=== PATIENT | male | born 1975 | race Caucasian/White ===

== ENCOUNTER 2023-07-23 23:00 | Inpatient (IN) | payer MEDICAID, SELFPAY ==
[2023-07-23 23:05] VITALS: BP 135/85; PULSE 74; RESP 18; TEMP 36.7; O2SAT 98
[2023-07-23 23:07] VITALS: BMI 21.7
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
[2023-07-24] MEDS: acetaminophen 325 mg Tablet 650 MG PO ×3 (00:22→20:42)
[2023-07-24] MEDS: LORazepam 2 mg Tablet PO ×6 (00:22→21:20)
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
[2023-07-24 04:54] LABS: Basophils # 0.1 10^3/uL (0.0-0.1); Basophils % 1.1 %; Eosinophils # 0.1 10^3/uL (0.0-0.8); Eosinophils % 1.9 %; Hematocrit 38.1 % (37-53); Lymphocytes # 1.8 10^3/uL (0.8-4.8); Lymphocytes % 31.2 %; Mean Corpuscular HGB Conc 33.1 g/dL (30-55); Mean Corpuscular Hemoglobin 31.8 pg (27-33); Mean Corpuscular Volume 96.2 fl (82-101); Monocytes # 0.5 10^3/uL (0.2-0.9); Monocytes % 9.4 %; Neutrophils # 3.13 10^3/uL (1.8-7.7); Neutrophils % 55.3 %; Nucleated Red Blood Cells % 0 %; Platelet Count 326 10^3/cmm (157-399); Red Blood Count 3.96 10^6/uL (3.85-5.65); Red Cell Distribution Width 14.5 % (12.1-15.1); White Blood Count 5.65 10^3/uL (3.29-11.43)
[2023-07-24 05:13] LABS: Anion Gap 14.5 (5-19); Blood Urea Nitrogen 14 mg/dL (6-20); Calcium 9.6 mg/dL (8.5-10.5); Carbon Dioxide 25 mmol/L (22-29); Chloride 105 mmol/L (98-107); Glomerular Filtration Rate 119.9 mL/min (90-130); Glucose 105 mg/dL (65-115); Osmolality Calculated 293 mOsm/kg (285-295); Potassium 3.5 mmol/L (3.5-5.1); Sodium 141 mmol/L (136-145)
[2023-07-24 05:42] LABS: Procalcitonin 0.17 ng/mL (0-0.5); Vitamin B12 510 pg/mL (232-1245)
[2023-07-24 05:58] LABS: Alcohol Level < 10 mg/dL (0-10)
[2023-07-24 06:00] VITALS: BP 121/74; PULSE 74; RESP 16; TEMP 36.4; O2SAT 97
[2023-07-24 06:25] LABS: C Reactive Protein 3.8 mg/L (0.0-4.9)
[2023-07-24] MEDS: potassium chloride ER 20 mEq Tablet 40 MEQ PO (08:08)
[2023-07-24] MEDS: thiamine 100 mg Tablet PO (08:08)
[2023-07-24] MEDS: multivitamin therapeutic Tablet 1 TAB PO (08:08)
[2023-07-24] MEDS: folic acid 1 mg Tablet PO (08:08)
[2023-07-24] MEDS: bacitracin ointment Pkt 1 EACH TOPICAL ×3 (08:08→20:38)
[2023-07-24] MEDS: doxycycline 100 mg Tablet PO ×2 (08:08→17:12)
[2023-07-24] MEDS: ondansetron 4 MG Tablet PO (08:09)
[2023-07-24] MEDS: silver sulfadiazine cream 1% 50 gm 1 APPLIC TOPICAL ×2 (08:37→17:13)
[2023-07-24] MEDS: hyDROXYzine 25 mg Capsule 50 MG PO (09:14)
[2023-07-24 14:00] VITALS: BP 106/68; PULSE 75; RESP 16; TEMP 36.6; O2SAT 95
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
[2023-07-24] MEDS: trazodone 50 mg Tablet PO (20:38)
[2023-07-24 20:43] VITALS: BP 104/65; PULSE 93; RESP 16; TEMP 37; O2SAT 65
[2023-07-24] MEDS: ibuprofen 600 mg Tablet PO (21:20)
[2023-07-25 06:00] VITALS: BP 98/60; PULSE 65; RESP 16; O2SAT 98
--- NOTE | 2023-07-25 06:19 | PC.NURSE ---
At 1945 pt scored a 14 on CIWA, this nurse gave pt 2mg Ativan PO per CIWA protocol. Reassessed pt at 2119 for CIWA and pt scored a 12. Pt was given 2mg Ativan PO per CIWA protocol Went to check on pt again at 2219 and pt was asleep. Respirations even and unlabored Pt then proceeded to score 0 on CIWA at 0000 and 0400. Vital at 0630 were HR 65, RR 16, BP 98/65, O2 98. Pt was told that his heart rate is a little low and that he needed to drink some water and walk around.
[2023-07-25] MEDS: LORazepam 2 mg Tablet PO ×2 (08:30→17:56)
[2023-07-25] MEDS: duloxetine 30 mg Capsule PO (08:30)
[2023-07-25] MEDS: doxycycline 100 mg Tablet PO ×2 (08:30→20:27)
[2023-07-25] MEDS: multivitamin therapeutic Tablet 1 TAB PO (08:30)
[2023-07-25] MEDS: folic acid 1 mg Tablet PO (08:36)
[2023-07-25] MEDS: thiamine 100 mg Tablet PO (08:36)
[2023-07-25] MEDS: silver sulfadiazine cream 1% 50 gm 1 APPLIC TOPICAL ×2 (08:36→20:28)
[2023-07-25] MEDS: bacitracin ointment Pkt 1 EACH TOPICAL ×3 (08:36→20:28)
[2023-07-25] MEDS: hyDROXYzine 25 mg Capsule 50 MG PO ×2 (11:37→20:27)
[2023-07-25] MEDS: OLANZapine 5 mg ODT PO ×2 (11:37→18:04)
[2023-07-25] MEDS: ibuprofen 600 mg Tablet PO ×3 (11:37→18:03)
[2023-07-25 14:00] VITALS: BP 109/77; PULSE 65; RESP 20; TEMP 36.5; O2SAT 97
--- NOTE | 2023-07-25 17:28 | W.PM.NPUPNS ---
Subjective NPU Subjective: 48-year-old male with a history of alcohol dependence and depression admitted with suicidal ideation. He has a past history of severe withdrawal symptoms. He remains on the CIWA protocol and reported feeling terrible. He had stated that he had a cyst under the parotid gland and was concerned that it was infected. He had reported feeling shaky. He had isolated himself in the room most of the day and was seen sleeping throughout much of the afternoon. He had minimal attendance in groups. He had reported no side effects from his medications. He had endorsed a sense of hopelessness. He had reported significant pain issues that had led to his substance abuse particularly alcohol dependence. Mental Status Exam MSE Comments: He is a casually dressed white male who appeared agitated today. He appeared in signficant distress. There was moderate tremor appreciated. His gait was not tested. His speech was normal in regards to rate rhythm and prosody. His mood was described as depressed. His affect was restricted in range and mood-congruent. His thought process was linear logical and goal-directed. His thought content showed no evidence of active homicidal ideation. He had reported no suicidal ideation but no active plan currently. He did not appear to be responding to internal stimuli. There was no clear evidence of delusional thinking. His insight was limited. His judgment was poor. His impulse control appeared limited at this time. Vitals/I&O/Wt Last Vital Signs Temp 97.7 F 07/25/23 14:00 Pulse 65 07/25/23 14:00 Resp 20 H 07/25/23 14:00 BP 109/77 07/25/23 14:00 Pulse Ox 97 07/25/23 14:00 O2 Del Method Room Air 07/25/23 14:00 Weight last 48 hrs Weight 74.843 kg Data NPU 07/24/23 03:38 07/24/23 03:38 A&P Assessment and plan (1) Suicidal ideation: (2) Alcohol abuse: (3) Alcohol dependence with acute alcoholic intoxication with complication: (4) Depression, unspecified: (5) Generalized anxiety disorder: Plan 48-year-old white male with a history of chronic pain issues depression and alcohol dependence admitted with suicidal ideation with considerable psychosocial stressors including financial stressors and homelessness. 1. Encourage individual, group and milieu therapy. 2. Recommend sober living treatment at the highest level of care to which the patient is willing to commit. 3. Continue q-15 minute checks for safety.? 4.? Restart current medications. 5.? CIWA protocol, patient has had severe withdrawal before, he continues to receive Ativan 2mg prn for acute withdrawal symptoms actively. 6. Medicine consult to evaluate left lymph node swelling. 7. Continue cymbalta 30mg daily Involuntary Hold Information 96 Hour Hold: 96 Hour Involuntary Admission: No Attestations NPU Medical Necessity Statement*: Inpatient hospitalization is medically necessary and deemed to?be?the clinically appropriate intervention ?at this time.? We will monitor/initiate medications and make changes as indicated.? The patient?s likely length of stay 4-6 days. Coding Level of Care Code Acute Code for [facility] Fwd Diagnoses Suicidal ideation R45.851 Alcohol abuse F10.10 Alcohol dependence with acute alcoholic intoxication with complication F10.229 Depression, unspecified F32.A Generalized anxiety disorder F41.1
[2023-07-25 18:59] LABS: Hematocrit 41.7 % (37-53); Mean Corpuscular HGB Conc 32.9 g/dL (30-55); Mean Corpuscular Hemoglobin 31.5 pg (27-33); Mean Corpuscular Volume 95.9 fl (82-101); Mean Platelet Volume 9.8 fL (7.4-10.4); Platelet Count 329 10^3/cmm (157-399); Red Blood Count 4.35 10^6/uL (3.85-5.65); Red Cell Distribution Width 14.4 % (12.1-15.1); White Blood Count 8.84 10^3/uL (3.29-11.43)
[2023-07-25 19:18] LABS: Absolute Eosinophils 0.3 10^3/cmm (0.0-0.7); Absolute Segmented Neutrophil 5.1 10/cmm (1.6-7.1); Band Neutrophils Absolute 0.2 10^3/cmm (0.0-1.2); Eosinophils 3 %; Lymphocytes 27 %; Lymphocytes Absolute 2.7 10^3/cmm (1.2-3.4); Monocytes Absolute 0.4 10^3/cmm (0.1-0.6); Segmented Neutrophils 58 %; Total Cells Counted 100 (0-100)
[2023-07-25 19:19] LABS: Absolute Neutrophil 5.3 10^3/cmm (1.4-6.5); Giant Platelets Trace; Platelet Estimate Normal (Normal)
[2023-07-25] MEDS: trazodone 50 mg Tablet PO (20:27)
--- NOTE | 2023-07-25 20:36 | PC.NURSE ---
pt ref vs resp 17
[2023-07-26 06:00] VITALS: BP 102/58; PULSE 76; RESP 15; TEMP 36.4; O2SAT 98
[2023-07-26] MEDS: duloxetine 30 mg Capsule PO (08:29)
[2023-07-26] MEDS: multivitamin therapeutic Tablet 1 TAB PO (08:29)
[2023-07-26] MEDS: doxycycline 100 mg Tablet PO ×2 (08:29→20:08)
[2023-07-26] MEDS: folic acid 1 mg Tablet PO (08:29)
[2023-07-26] MEDS: thiamine 100 mg Tablet PO (08:29)
[2023-07-26] MEDS: hyDROXYzine 25 mg Capsule 50 MG PO ×2 (08:31→20:08)
--- NOTE | 2023-07-26 08:32 | PC.NURSE ---
PRN VISTARIL 50 MG GIVEN PO PER PT C/O STATED ANXIETY
--- NOTE | 2023-07-26 08:33 | PC.NURSE ---
REFUSED SCHEDULED SILVADENE CREAM & BACITRACIN OINTMENT
--- NOTE | 2023-07-26 08:36 | PC.NURSE ---
SHIFT ASSESSMENT APPEARS CALM, JUST UP TO DAY ROOM FOR BREAKFAST, SPECIFICALLY ASKING FOR ATIVAN WITH MORNING MEDICATION, PRN VISTARIL GIVEN FOR C/O ANXIETY, STATED YEAH I'M SUICIDAL WHEN ASKED, BUT DENIES PLAN, CONTRACTS FOR SAFETY. C/O SOME HALLUCIANTIONS BUT DOES NOT APPEAR TO RESPOND TO ANY INTERNAL STIMULI CURRENTLY
[2023-07-26] MEDS: OLANZapine 5 mg ODT PO (12:01)
--- NOTE | 2023-07-26 13:04 | W.PM.NPUPNS ---
Subjective NPU Subjective: 48-year-old male with a history of alcohol dependence and depression admitted with suicidal ideation. Patient had reported feeling bad. He reported considerable shaking and reported that the visual and auditory hallucinations were becoming present again. He has a past history of severe withdrawal symptoms. He remained on a CIWA protocol here. Patient was given Ativan later in the afternoon yesterday with some improvement as he had fallen back asleep. He had reported sleep continuity disruption and discomfort. He had reported significant issues with managing pain as he stated that his back was hurting from a significant back injury suffered many years ago that did lead to the patient using alcohol to treat his chronic pain. Mental Status Exam MSE Comments: He is a casually dressed white male who again appeared agitated and in severe distress today. There was moderate tremor appreciated. His gait was not tested. His speech was normal in regards to rate rhythm and prosody. His mood was described as terrible. His affect was restricted in range and mood-congruent. His thought process was linear logical and goal-directed. His thought content showed no evidence of active homicidal ideation. He had reported no suicidal ideation but no active plan currently. He did not appear to be responding to internal stimuli although he reported seeing things. There was no clear evidence of delusional thinking. His insight was limited. His judgment was poor. His impulse control appeared limited at this time. Vitals/I&O/Wt Last Vital Signs Temp 97.5 F L 07/26/23 06:00 Pulse 76 07/26/23 06:00 Resp 15 07/26/23 06:00 BP 102/58 07/26/23 06:00 Pulse Ox 98 07/26/23 06:00 O2 Del Method Room Air 07/26/23 06:00 Data NPU 07/25/23 18:44 07/24/23 03:38 A&P Assessment and plan (1) Suicidal ideation: (2) Alcohol abuse: (3) Alcohol dependence with acute alcoholic intoxication with complication: (4) Depression, unspecified: (5) Generalized anxiety disorder: Plan 48-year-old white male with a history of chronic pain issues depression and alcohol dependence admitted with suicidal ideation with considerable psychosocial stressors including financial stressors and homelessness. 1. Encourage individual, group and milieu therapy. 2. Recommend sober living treatment at the highest level of care to which the patient is willing to commit. 3. Continue q-15 minute checks for safety.? 4.? Restart current medications. 5.? CIWA protocol, patient has had severe withdrawal before, he continues to receive Ativan 2mg prn for acute withdrawal symptoms actively. He was given ativan 2mg x1 now. Hallucinations appear unusual given time frame. that he was last having consumed etoh. 6. Medicine consult to evaluate left lymph node swelling. 7. Continue cymbalta 30mg daily Involuntary Hold Information 96 Hour Hold: 96 Hour Involuntary Admission: No Attestations NPU Medical Necessity Statement*: Inpatient hospitalization is medically necessary and deemed to?be?the clinically appropriate intervention ?at this time.? We will monitor/initiate medications and make changes as indicated.? The patient?s likely length of stay 4-6 days. Coding Level of Care Code Acute Code for [facility] Fwd Diagnoses Suicidal ideation R45.851 Alcohol abuse F10.10 Alcohol dependence with acute alcoholic intoxication with complication F10.229 Depression, unspecified F32.A Generalized anxiety disorder F41.1
[2023-07-26] MEDS: LORazepam 2 mg Tablet PO (13:46)
[2023-07-26] MEDS: acetaminophen 325 mg Tablet 650 MG PO (13:49)
[2023-07-26 14:00] VITALS: BP 100/61; PULSE 72; RESP 14; TEMP 36.2; O2SAT 96
[2023-07-26] MEDS: trazodone 50 mg Tablet PO (20:08)
[2023-07-26] MEDS: silver sulfadiazine cream 1% 50 gm 1 APPLIC TOPICAL (20:08)
[2023-07-26] MEDS: bacitracin ointment Pkt 1 EACH TOPICAL (20:08)
[2023-07-26] MEDS: nicotine 2 mg Gum BUCCAL (20:10)
[2023-07-26 20:24] VITALS: BP 119/53; PULSE 77; RESP 16; TEMP 36.6; O2SAT 96
[2023-07-27] MEDS: OLANZapine 5 mg ODT PO ×2 (00:23→08:29)
[2023-07-27] MEDS: thiamine 100 mg Tablet PO (08:26)
[2023-07-27] MEDS: multivitamin therapeutic Tablet 1 TAB PO (08:26)
[2023-07-27] MEDS: folic acid 1 mg Tablet PO (08:26)
[2023-07-27] MEDS: bacitracin ointment Pkt 1 EACH TOPICAL ×2 (08:26→14:43)
[2023-07-27] MEDS: doxycycline 100 mg Tablet PO ×2 (08:26→20:21)
[2023-07-27] MEDS: duloxetine 30 mg Capsule PO (08:26)
[2023-07-27] MEDS: silver sulfadiazine cream 1% 50 gm 1 APPLIC TOPICAL ×2 (08:27→20:21)
--- NOTE | 2023-07-27 08:53 | PC.NURSE ---
Pt stated that he was having Auditory Hallucinations this AM, administered a 5mg Zyprexa.
[2023-07-27] MEDS: haloperidol 5 mg Tablet PO (12:37)
[2023-07-27] MEDS: chlordiazePOXIDE 25 mg Capsule PO ×2 (12:37→18:25)
[2023-07-27 14:00] VITALS: BP 101/72; PULSE 67; RESP 14; TEMP 36.4; O2SAT 97
[2023-07-27] MEDS: acetaminophen 325 mg Tablet 650 MG PO (15:14)
--- NOTE | 2023-07-27 15:38 | W.PM.NPUPNS ---
Subjective NPU Subjective: 48-year-old male with a history of alcohol dependence and depression admitted with suicidal ideation. The patient had reported breakthrough pain in the absence of alcohol which she had used to treat his pain. He had reported that he was hearing sounds and was sensitive to noises. He had received Librium today and reported that he was feeling better afterwards. He is several days out of his last use of alcohol. He had reported continued depressed mood. He had reported some feelings of hopelessness. He continued to isolate himself in the room with limited ability to manage stress. He had also reported considerable pain. Mental Status Exam MSE Comments: He is a casually dressed white male who again appeared anxious and in severe distress today. He appeared tremulous. His gait appeared antalgic. His speech was normal in regards to rate rhythm and prosody. His mood was described as bad. His affect was restricted in range and mood-congruent. His thought process was linear logical and goal-directed. His thought content showed no evidence of active homicidal ideation. He had reported no suicidal ideation but no active plan currently. He did not appear to be responding to internal stimuli although he reported hearing things. There was no clear evidence of delusional thinking. His insight was limited. His judgment was poor. His impulse control appeared limited at this time. Vitals/I&O/Wt Last Vital Signs Temp 97.9 F 07/26/23 20:24 Pulse 77 07/26/23 20:24 Resp 16 07/26/23 20:24 BP 119/53 07/26/23 20:24 Pulse Ox 96 07/26/23 20:24 O2 Del Method Room Air 07/26/23 06:00 Data NPU 07/25/23 18:44 07/24/23 03:38 A&P Assessment and plan (1) Suicidal ideation: (2) Alcohol abuse: (3) Alcohol dependence with acute alcoholic intoxication with complication: (4) Depression, unspecified: (5) Generalized anxiety disorder: Plan 48-year-old white male with a history of chronic pain issues depression and alcohol dependence admitted with suicidal ideation with considerable psychosocial stressors including financial stressors and homelessness. 1. Encourage individual, group and milieu therapy. 2. Recommend sober living treatment at the highest level of care to which the patient is willing to commit. 3. Continue q-15 minute checks for safety.? 4.? Restart current medications. 5.? [facility] protocol, patient has had severe withdrawal before, switched to Librium 25mg Hallucinations appear unusual given time frame. that he was last having consumed etoh. 6. Medicine consult to evaluate left lymph node swelling and if any pain medication would be helpful. 7. Continue cymbalta 30mg daily Involuntary Hold Information 96 Hour Hold: 96 Hour Involuntary Admission: No Attestations NPU Medical Necessity Statement*: Inpatient hospitalization is medically necessary and deemed to?be?the clinically appropriate intervention ?at this time.? We will monitor/initiate medications and make changes as indicated.? The patient?s likely length of stay 2-3 days. Coding Level of Care Code Acute Code for [facility] Fwd Diagnoses Suicidal ideation R45.851 Alcohol abuse F10.10 Alcohol dependence with acute alcoholic intoxication with complication F10.229 Depression, unspecified F32.A Generalized anxiety disorder F41.1
[2023-07-27] MEDS: ibuprofen 600 mg Tablet PO (16:25)
[2023-07-27 19:03] LABS: Rapid Strep A Test Negative (Negative)
[2023-07-27 20:01] VITALS: BP 110/65; PULSE 74; RESP 16; TEMP 36.4; O2SAT 97
[2023-07-27] MEDS: trazodone 50 mg Tablet PO (20:21)
[2023-07-27] MEDS: amoxicillin-clav 875-125 mg Tablet 1 TAB PO (20:21)
[2023-07-27] MEDS: hyDROXYzine 25 mg Capsule 50 MG PO (20:21)
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
[2023-07-28 06:00] VITALS: BP 98/63; PULSE 59; RESP 16; TEMP 36.4; O2SAT 96
--- NOTE | 2023-07-28 06:00 | USR_ITS ---
PROCEDURE INFORMATION: Exam: US Soft Tissue Head and Neck, Soft Tissue Exam date and time: 07/28/2023 8:50 AM Age: 48 years old Clinical indication: Mass, lump, or swelling in neck; Left; Additional info: Tender swollen L submandibular ln vs salivary gland TECHNIQUE: Imaging protocol: Real-time ultrasound scan of the head and neck with image documentation. Exam focused on the soft tissue in the region of clinical concern. COMPARISON: No relevant prior studies available. FINDINGS: Salivary glands: Imaged left submandibular gland is unremarkable. Lymph nodes: At the area of concern just superior to the left submandibular gland is an enlarged 2.0 x 1.4 x 1.6 cm lymph node with preserved echogenic fatty hilum and associated hilar flow. No hyperemia. Few nearby smaller morphologically normal lymph nodes are noted. Soft tissues: Unremarkable. No fluid collections. US/US soft tissue head neck 22010 IMPRESSION: Enlarged lymph node at the left neck area of concern just above the submandibular gland is nonspecific, possibly reactive.
[2023-07-28] MEDS: OLANZapine 5 mg ODT PO ×2 (06:31→19:44)
[2023-07-28] MEDS: amoxicillin-clav 875-125 mg Tablet 1 TAB PO ×2 (08:29→19:44)
[2023-07-28] MEDS: duloxetine 30 mg Capsule 60 MG PO (08:29)
[2023-07-28] MEDS: nicotine 2 mg Gum BUCCAL (08:29)
[2023-07-28] MEDS: folic acid 1 mg Tablet PO (08:30)
[2023-07-28] MEDS: doxycycline 100 mg Tablet PO ×2 (08:30→19:43)
[2023-07-28] MEDS: multivitamin therapeutic Tablet 1 TAB PO (08:30)
[2023-07-28] MEDS: thiamine 100 mg Tablet PO (08:30)
[2023-07-28] MEDS: silver sulfadiazine cream 1% 50 gm 1 APPLIC TOPICAL ×2 (08:30→19:48)
[2023-07-28] MEDS: bacitracin ointment Pkt 1 EACH TOPICAL ×2 (08:30→19:44)
[2023-07-28] MEDS: chlordiazePOXIDE 25 mg Capsule PO ×2 (08:30→15:08)
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
[2023-07-28 14:00] VITALS: BP 107/64; PULSE 73; RESP 16; TEMP 36.8; O2SAT 98
[2023-07-28] MEDS: haloperidol 5 mg Tablet PO (15:10)
[2023-07-28] MEDS: hyDROXYzine 25 mg Capsule 50 MG PO ×2 (16:01→22:11)
[2023-07-28] MEDS: trazodone 50 mg Tablet PO (19:47)
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
--- NOTE | 2023-07-28 21:37 | CTR_ITS ---
PROCEDURE INFORMATION: Exam: CT Neck With Contrast Exam date and time: 07/29/2023 12:25 AM Age: 48 years old Clinical indication: Other: Left mandible pain; Patient HX: Left mandibular pain. Enlarged lymph node superior to submandibular gland noted on US. ; Additional info: Assess for any dental abscess, swollen, tender L submandibilar ln TECHNIQUE: Imaging protocol: Computed tomography of the neck with contrast. Radiation optimization: All CT scans at this facility use at least one of these dose optimization techniques: automated exposure control; mA and/or kV adjustment per patient size (includes targeted exams where dose is matched to clinical indication); or iterative reconstruction. Contrast material: OMNI 350; Contrast volume: 100 ml; Contrast route: INTRAVENOUS (IV); REPORTING DATA: Count of CT and Cardiac NM exams in prior 12 months: This patient has received 0 known CTs and 0 known cardiac nuclear medicine studies in the 12 months prior to the current study. COMPARISON: US soft tissue head neck [id number] 07/28/2023 8:50 AM RADIATION DOSE METRICS: Total DLP (mGy-cm): 195.92 FINDINGS: Dental: Periodontal disease. Pharynx: Unremarkable. No significant tonsillar enlargement. Larynx: Unremarkable. Epiglottis is normal. Prevertebral and retropharyngeal spaces: Unremarkable. Salivary glands: Normal. Glands are normal in size. Thyroid: Normal. No enlarged or calcified nodules. Lymph nodes: Enlarged left submandibular lymph node measuring up to 13 mm in short axis with multiple adjacent nodes measuring up to 7 mm in short axis. Trachea: Visualized trachea is unremarkable. Lungs: Moderate emphysematous changes in the lung apices. Bones/joints: Unremarkable. No acute fracture. Soft tissues: Unremarkable. No significant soft tissue swelling. CT/CT neck w con* [id number] IMPRESSION: 1. Enlarged left submandibular lymph node measuring up to 13 mm in short axis with multiple adjacent nodes measuring up to 7 mm in short axis. 2. Periodontal disease.
[2023-07-28 22:00] VITALS: BP 103/58; PULSE 88; RESP 16; TEMP 36.7; O2SAT 93
--- NOTE | 2023-07-29 00:16 | PC.NURSE ---
[employer] HERE TO TRANSPORT PATIENT TO CAT-SCAN FOR CAT-SCAN OF NECK WITH CONTRAST.
[2023-07-29] MEDS: iohexol 350 mg/mL 500 mL Btl (per mL) IV (00:31)
[2023-07-29 06:00] VITALS: BP 94/59; PULSE 58; RESP 16; TEMP 36.4; O2SAT 96
[2023-07-29] MEDS: folic acid 1 mg Tablet PO (08:44)
[2023-07-29] MEDS: duloxetine 30 mg Capsule 60 MG PO (08:44)
[2023-07-29] MEDS: nicotine 2 mg Gum BUCCAL (08:44)
[2023-07-29] MEDS: multivitamin therapeutic Tablet 1 TAB PO (08:44)
[2023-07-29] MEDS: thiamine 100 mg Tablet PO (08:44)
[2023-07-29] MEDS: chlordiazePOXIDE 25 mg Capsule PO ×2 (08:44→15:02)
[2023-07-29] MEDS: amoxicillin-clav 875-125 mg Tablet 1 TAB PO ×2 (08:44→19:34)
[2023-07-29 09:06] LABS: Basophils # 0.1 10^3/uL (0.0-0.1); Basophils % 1.6 %; Eosinophils # 0.2 10^3/uL (0.0-0.8); Eosinophils % 3.5 %; Hematocrit 46.4 % (37-53); Lymphocytes # 2.5 10^3/uL (0.8-4.8); Lymphocytes % 39.4 %; Mean Corpuscular HGB Conc 31.9 g/dL (30-55); Mean Corpuscular Hemoglobin 31.9 pg (27-33); Mean Platelet Volume 9.8 fL (7.4-10.4); Monocytes # 0.7 10^3/uL (0.2-0.9); Monocytes % 10.2 %; Neutrophils # 2.74 10^3/uL (1.8-7.7); Neutrophils % 43.1 %; Nucleated Red Blood Cells % 0 %; Platelet Count 354 10^3/cmm (157-399); Red Blood Count 4.64 10^6/uL (3.85-5.65); Red Cell Distribution Width 14.2 % (12.1-15.1); White Blood Count 6.35 10^3/uL (3.29-11.43)
[2023-07-29 09:26] LABS: Alanine Aminotransferase 231 U/L (0-41); Albumin Level 4.5 g/dL (3.5-5.2); Alkaline Phosphatase 113 U/L (40-130); Aspartate Amino Transferase 244 U/L (0-40); Blood Urea Nitrogen 17 mg/dL (6-20); Carbon Dioxide 27 mmol/L (22-29); Chloride 104 mmol/L (98-107); Globulin 2.5 g/dL (1.3-4.6); Glomerular Filtration Rate 79.4 mL/min (90-130); Glucose 90 mg/dL (65-115); Osmolality Calculated 293 mOsm/kg (285-295); Sodium 141 mmol/L (136-145); Total Bilirubin 0.4 mg/dL (0.15-1.2)
[2023-07-29] MEDS: doxycycline 100 mg Tablet PO ×2 (10:13→19:33)
[2023-07-29] MEDS: bacitracin ointment Pkt 1 EACH TOPICAL ×2 (10:13→19:34)
[2023-07-29] MEDS: silver sulfadiazine cream 1% 50 gm 1 APPLIC TOPICAL ×2 (10:13→19:37)
[2023-07-29] MEDS: hyDROXYzine 25 mg Capsule 50 MG PO (12:22)
[2023-07-29 14:00] VITALS: BP 102/69; PULSE 68; RESP 15; TEMP 36.4; O2SAT 96
[2023-07-29] MEDS: phenol oral Spray 177 mL 3 SPRAY MUCOUS MEM (15:03)
[2023-07-29] MEDS: OLANZapine 5 mg ODT PO ×2 (15:04→19:34)
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
[2023-07-29] MEDS: trazodone 50 mg Tablet PO (19:36)
[2023-07-29] MEDS: haloperidol 5 mg Tablet PO (19:36)
[2023-07-29 20:01] VITALS: BP 104/74; PULSE 76; RESP 18; O2SAT 98
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
[2023-07-29 22:20] LABS: Hepatitis A Antibody IgM Non-Reactive (Nonreactive); Hepatitis B Core IgM Non-Reactive (Nonreactive); Hepatitis B Surface Antigen Non-Reactive (Nonreactive)
[2023-07-29 22:54] LABS: Hepatitis C Virus Antibody Reactive (Nonreactive)
[2023-07-30 06:00] VITALS: BP 104/64; PULSE 57; RESP 18; O2SAT 97
[2023-07-30 07:04] LABS: Alanine Aminotransferase 214 U/L (0-41); Albumin Level 3.9 g/dL (3.5-5.2); Alkaline Phosphatase 90 U/L (40-130); Aspartate Amino Transferase 199 U/L (0-40); Blood Urea Nitrogen 18 mg/dL (6-20); Calcium 9.3 mg/dL (8.5-10.5); Carbon Dioxide 26 mmol/L (22-29); Chloride 103 mmol/L (98-107); Globulin 2.7 g/dL (1.3-4.6); Glomerular Filtration Rate 89.7 mL/min (90-130); Glucose 89 mg/dL (65-115); Osmolality Calculated 289 mOsm/kg (285-295); Sodium 139 mmol/L (136-145); Total Bilirubin 0.4 mg/dL (0.15-1.2); Total Protein 6.6 g/dL (6.6-8.7)
[2023-07-30] MEDS: multivitamin therapeutic Tablet 1 TAB PO (08:03)
[2023-07-30] MEDS: thiamine 100 mg Tablet PO (08:03)
[2023-07-30] MEDS: doxycycline 100 mg Tablet PO ×2 (08:03→20:20)
[2023-07-30] MEDS: amoxicillin-clav 875-125 mg Tablet 1 TAB PO ×2 (08:03→20:17)
[2023-07-30] MEDS: duloxetine 30 mg Capsule 60 MG PO (08:03)
[2023-07-30] MEDS: buprenorphine-naloxone 4-1 mg Film 1 EACH SUBLINGUAL ×2 (08:03→17:55)
[2023-07-30] MEDS: folic acid 1 mg Tablet PO (08:03)
[2023-07-30] MEDS: hyDROXYzine 25 mg Capsule 50 MG PO ×2 (11:45→20:17)
[2023-07-30 14:00] VITALS: BP 108/70; PULSE 65; RESP 15; TEMP 36.2; O2SAT 97
[2023-07-30] MEDS: acetaminophen 325 mg Tablet 650 MG PO (15:40)
[2023-07-30] MEDS: OLANZapine 5 mg ODT PO ×2 (15:41→20:18)
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
[2023-07-30] MEDS: trazodone 50 mg Tablet PO (20:17)
[2023-07-30] MEDS: silver sulfadiazine cream 1% 50 gm 1 APPLIC TOPICAL (20:18)
[2023-07-30] MEDS: bacitracin ointment Pkt 1 EACH TOPICAL (20:18)
[2023-07-30 20:31] VITALS: BP 113/74; PULSE 63; RESP 18; TEMP 36.3; O2SAT 95
[2023-07-31] MEDS: OLANZapine 5 mg ODT PO ×2 (04:32→20:01)
[2023-07-31] MEDS: folic acid 1 mg Tablet PO ×2 (08:00)
[2023-07-31] MEDS: doxycycline 100 mg Tablet PO ×2 (08:00→20:02)
[2023-07-31] MEDS: duloxetine 30 mg Capsule 60 MG PO ×2 (08:00)
[2023-07-31] MEDS: amoxicillin-clav 875-125 mg Tablet 1 TAB PO ×2 (08:00→20:02)
[2023-07-31] MEDS: bacitracin ointment Pkt 1 EACH TOPICAL ×2 (08:00→20:02)
[2023-07-31] MEDS: multivitamin therapeutic Tablet 1 TAB PO (08:00)
[2023-07-31] MEDS: buprenorphine-naloxone 4-1 mg Film 1 EACH SUBLINGUAL ×2 (08:00→20:02)
--- NOTE | 2023-07-31 08:55 | PC.NURSE ---
shift assessment denies SI/HI but c/o having voices but does not appear to be responding to internal stimuli. med seeking behaviors noted, asks for Zyprexa often
[2023-07-31 13:46] LABS: Alanine Aminotransferase 239 U/L (0-41); Albumin Level 4.3 g/dL (3.5-5.2); Alkaline Phosphatase 106 U/L (40-130); Blood Urea Nitrogen 17 mg/dL (6-20); Calcium 9.4 mg/dL (8.5-10.5); Carbon Dioxide 30 mmol/L (22-29); Chloride 98 mmol/L (98-107); Globulin 2.8 g/dL (1.3-4.6); Glomerular Filtration Rate 79.4 mL/min (90-130); Glucose 120 mg/dL (65-115); Osmolality Calculated 289 mOsm/kg (285-295); Sodium 138 mmol/L (136-145); Total Bilirubin 0.3 mg/dL (0.15-1.2); Total Protein 7.1 g/dL (6.6-8.7)
[2023-07-31 13:56] LABS: Anion Gap 14.3 (5-19); Aspartate Amino Transferase 187 U/L (0-40); Potassium 4.3 mmol/L (3.5-5.1)
[2023-07-31 14:00] VITALS: BP 144/89; PULSE 63; RESP 16; TEMP 36.8; O2SAT 98
[2023-07-31] MEDS: ondansetron 4 MG Tablet PO (15:07)
[2023-07-31] MEDS: acetaminophen 325 mg Tablet 650 MG PO (15:07)
--- NOTE | 2023-07-31 15:07 | PC.NURSE ---
PRN ZOFRAN 4 MG GIVEN PO PER PT C/O STATED NAUSEA
--- NOTE | 2023-07-31 15:43 | PC.NURSE ---
REFUSED SCHEDULED BACITRACIN OINTMENT
[2023-07-31] MEDS: hyDROXYzine 25 mg Capsule 50 MG PO (18:08)
--- NOTE | 2023-07-31 18:09 | PC.NURSE ---
prn Vistaril 50 mg given po per pt c/o stated anxiety will cont to monitor for desired med effectiveness
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
[2023-07-31] MEDS: trazodone 50 mg Tablet PO (20:01)
[2023-07-31] MEDS: silver sulfadiazine cream 1% 50 gm 1 APPLIC TOPICAL (20:02)
[2023-07-31 22:00] VITALS: BP 108/66; PULSE 62; RESP 18; TEMP 36.5; O2SAT 92
[2023-08-01 06:00] VITALS: RESP 15
[2023-08-01 07:28] VITALS: RESP 15
[2023-08-01] MEDS: duloxetine 30 mg Capsule 60 MG PO (08:18)
[2023-08-01] MEDS: thiamine 100 mg Tablet PO (08:18)
[2023-08-01] MEDS: doxycycline 100 mg Tablet PO (08:19)
[2023-08-01] MEDS: folic acid 1 mg Tablet PO (08:19)
[2023-08-01] MEDS: multivitamin therapeutic Tablet 1 TAB PO (08:19)
[2023-08-01] MEDS: amoxicillin-clav 875-125 mg Tablet 1 TAB PO (08:19)
[2023-08-01] MEDS: buprenorphine-naloxone 4-1 mg Film 1 EACH SUBLINGUAL (08:19)
[2023-08-01 12:50] LABS: HEP C RNA Viral Load Quant 6.78 Log IU/mL (NOT DETECTED); HEP C RNA Viral Load Quant 6050000 IU/mL (NOT DETECTED)
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
== END 2023-08-01 08:40 | disposition home or self-care (01) | DRG 881 ==
PROVIDERS: Internal Medicine; Admitting Provider Psychiatry & Neurology Psychiatry; Visit Provider Psychiatry & Neurology Psychiatry
DX: F32.A Depression, unspecified (principal); Z59.02 Unsheltered homelessness; R45.851 Suicidal ideations; F10.239 Alcohol dependence with withdrawal, unspecified; F11.20 Opioid dependence, uncomplicated; Z59.6 Low income; F17.210 Nicotine dependence, cigarettes, uncomplicated; F10.229 Alcohol dependence with intoxication, unspecified; M51.26 Other intervertebral disc displacement, lumbar region; F12.90 Cannabis use, unspecified, uncomplicated; Z81.1 Family history of alcohol abuse and dependence; Z81.8 Family history of other mental and behavioral disorders; F41.1 Generalized anxiety disorder; G89.29 Other chronic pain; K02.9 Dental caries, unspecified; K05.10 Chronic gingivitis, plaque induced; R59.0 Localized enlarged lymph nodes; R74.01 Elevation of levels of liver transaminase levels; T23.101A Burn of first degree of right hand, unspecified site, initial encounter; X03.0XXA Exposure to flames in controlled fire, not in building or structure, initial encounter; Y92.9 Unspecified place or not applicable
CPT/HCPCS: 36415; 70491; 76536; 80048; 80053; 80074; 80307; 82607; 83735; 84145; 85007; 85025; 85027; 86140; 87081; 87522; 87880; 97150; 97165; J0573; Q0162; Q9967